=== PATIENT | male | born 2000 ===

== ENCOUNTER 2021-07-26 02:51 | Emergency (ER) | payer BC ==
[2021-07-26] MEDS ORDERED: Sodium Chloride 0.9% 1,000 ML IV ONE (04:04)
== END 2021-07-26 05:31 | disposition home or self-care (01) ==
LOC: JD.ED 02:51
DX: U07.1 COVID-19 (principal); I95.1 Orthostatic hypotension; Z72.0 Tobacco use
CPT/HCPCS: 36415; 71046; 80053; 83690; 83735; 85025; 85379; 87635; 99284; J7030; U0002